=== PATIENT | male | born 1970 | race Caucasian/White ===

== ENCOUNTER 2018-12-09 13:19 | Emergency (ER) | payer BC ==
[2018-12-09 13:27] VITALS: BP 153/91; PULSE 81; RESP 18; TEMP 98.5
[2018-12-09] MEDS ORDERED: DIPH,PERTUS(ACELL)TETVAC-LF 0.5 ML VIAL IM ONE (13:44)
--- NOTE | 2018-12-09 13:47 | ED ---
Wound/Laceration HPI - General Chief Complaint: Wound/Laceration Stated Complaint: Chest lac Time Seen by Provider: 12/09/18 13:31 Source: patient, RN notes reviewed Mode of arrival: ambulatory Limitations: no limitations - History of Present Illness Initial Comments: This a 48-year-old male presents emergency Department chief complaint of laceration to his chest. Patient states he was using a chop saw and states that he kicked back causing a laceration and abrasion from his abdomen across his anterior chest wall. He states his tetanus was several years ago unsure exactly when. Patient has no chest pain or shortness breath no other injuries noted. - Related Data Allergies Allergy/AdvReac Type Severity Reaction Status Date / Time No Known Allergies Allergy Verified 12/09/18 13:26 Review of Systems ROS Statement: Those systems with pertinent positive or pertinent negative responses have been documented in the HPI. ROS Other: All systems not noted in ROS Statement are negative. Past Medical History Past Medical History: No Reported History History of Any Multi-Drug Resistant Organisms: None Reported Past Surgical History: No Surgical Hx Reported Past Psychological History: No Psychological Hx Reported Smoking Status: Current every day smoker Past Alcohol Use History: None Reported Past Drug Use History: None Reported General Exam Limitations: no limitations General appearance: alert, in no apparent distress Head exam: Present: atraumatic, normocephalic, normal inspection Neck exam: Present: normal inspection, full ROM. Absent: tenderness, meningismus, lymphadenopathy Respiratory exam: Present: normal lung sounds bilaterally, other (Total wound extending from the mid abdomen to anterior left chest wall primary superficial with the area approximately 3cm is partial thickness laceration). Absent: respiratory distress, wheezes, rales, rhonchi, stridor Cardiovascular Exam: Present: regular rate, normal rhythm, normal heart sounds. Absent: systolic murmur, diastolic murmur, rubs, gallop, clicks Course Vital Signs 12/09/18 13:24 Temperature 98.5 F Pulse Rate 81 Respiratory 18 Rate Blood Pressure 153/91 O2 Sat by Pulse 100 Oximetry Medical Decision Making - Medical Decision Making 48-year-old male presented for chest laceration. There are noted burn edges and limited vascularity. We discussed suturing versus not suturing. We discussed that this may dehisce even if sutured. He states he does not want to go through it at this may happen the first leave open we discussed wound care and return parameters. Disposition Clinical Impression: Laceration of chest wall Disposition: HOME SELF-CARE Condition: Stable Instructions (If sedation given, give patient instructions): Laceration (ED), Acute Wound Care (ED) Additional Instructions: Please return to the Emergency Department if symptoms worsen or any other concerns. Is patient prescribed a controlled substance at d/c from ED?: No Referrals: None,Stated [REFERRING] - 1-2 days Time of Disposition: 14:23
[2018-12-09] MEDS: LIDOCAINE 1% INJ 10MG/ML (20 ML MDV) SQ ONE ×2 (14:11→14:22)
== END 2018-12-09 14:24 | disposition home or self-care (01) ==
LOC: EC 13:19
DX: S21.112A Laceration without foreign body of left front wall of thorax without penetration into thoracic cavity, initial encounter (principal); F17.200 Nicotine dependence, unspecified, uncomplicated; Z23 Encounter for immunization; Z53.8 Procedure and treatment not carried out for other reasons; W27.0XXA Contact with workbench tool, initial encounter
CPT/HCPCS: 90471; 90715; 99282